=== PATIENT | female | born 1940 | race Caucasian/White ===

== ENCOUNTER 2017-12-07 21:21 | Emergency (ER) | payer MEDICARE, SELFPAY ==
[2017-12-07 21:23] VITALS: BP 145/73; PULSE 79; RESP 18; TEMP 36.7; O2SAT 98; BMI 40.2
[2017-12-07 22:21] LABS: Bedside Glucose 126 mg/dL (70-110)
[2017-12-07 23:05] LABS: Bedside Glucose 102 mg/dL (70-110)
[2017-12-07 23:36] LABS: Bedside Glucose 73 mg/dL (70-110)
--- NOTE | 2017-12-07 23:40 | ED.VISSUMM ---
- ER Visit Summary Date of Service: 12/07/17 Chief Complaint: Medication error History of Present Illness: The patient is a 77 F who had a medication error tonight. She took 27 units of her Humalog instead of her Lantus. This occurred at 2054. Her blood sugar before that was 200. She denies any symptoms at this time. Physical Examination: Vital signs reviewed. HEENT exam unremarkable. Heart is regular rate and rhythm without murmurs. Lungs are clear to auscultation. Abdomen is soft and nontender. Extremities reveal no edema. Skin exam normal. Neurologic exam normal. Test Results: Sugar at 2216 is 126. Blood sugar at 2300 is 102. Blood sugar at 2332 is 76. Patient is currently eating peanut butter and orange juice at this time. The patient's insulin that she took his short acting. Should be getting out of her system fairly quickly. I will monitor her here and then she will be discharged to continue checking her blood sugars at home. She will can continue her regular dosing tomorrow Emergency Department Course and Treatment: [] Treatment Plan: [] Disposition: Discharge Impression: Accidental medication overdose This note was generated with [employer] software. It may contain incorrect words, spelling, and punctuation that were not noted in review of the chart prior to signing ED Disposition - Plan for ED Patient: Chief Complaint: Overdose Referrals: Arsenio Daley MD [Primary Care Provider] -
--- NOTE | 2017-12-07 23:42 | ED.DEP ---
ED Disposition - Plan for ED Patient: Disposition: Home or Assisted Living Chief Complaint: Overdose Instructions: ED Overdose Accidental Referrals: Arsenio Daley MD [Primary Care Provider] -
[2017-12-07 23:51] VITALS: BP 133/55; PULSE 69; RESP 16; O2SAT 96
== END 2017-12-07 23:52 | disposition home or self-care (01) ==
PROVIDERS: Emergency Provider Emergency Medicine; Family Provider Family Medicine; PCP Family Medicine
DX: T38.3X1A Poisoning by insulin and oral hypoglycemic [antidiabetic] drugs, accidental (unintentional), initial encounter (principal); Y92.9 Unspecified place or not applicable; E11.9 Type 2 diabetes mellitus without complications; Z79.4 Long term (current) use of insulin; Z79.84 Long term (current) use of oral hypoglycemic drugs
CPT/HCPCS: 82962; 99282

== ENCOUNTER 2017-12-24 14:27 | Emergency (ER) | payer MEDICARE, SELFPAY ==
[2017-12-24 14:29] VITALS: BP 136/69; PULSE 64; RESP 18; TEMP 36.2; O2SAT 99; BMI 38.9
--- NOTE | 2017-12-24 16:21 | EKG12_ITS ---
Test Reason : ABN LABS Blood Pressure : / mmHG Vent. Rate : 059 BPM Atrial Rate : 059 BPM P-R Int : 150 ms QRS Dur : 090 ms QT Int : 420 ms P-R-T Axes : 024 032 059 degrees QTc Int : 415 ms Sinus bradycardia Low voltage QRS Borderline ECG Confirmed by CHIQUITA KIMBALL, CUBA ([id number]), purchasing expeditor ARLENE JARVIS ([id number]) on 12/26/2017 3:19:09 PM Referred By: GRACY Confirmed By:CUBA PORRAS MD
--- NOTE | 2017-12-24 16:21 | ED.DCSUM_ITS ---
- ER Visit Summary Date of Service: 12/24/17 Chief Complaint: Increased potassium History of Present Illness: The patient is a 77 F with increased potassium per outpatient lab. Patient is essentially asymptomatic. She was seeing the PCP for generalized weakness for a few months. She has no chest pain shortness of breath no nausea vomiting no palpitations or recent syncope. Physical Examination: Not appear in acute distress. Moist mucous membranes, no obvious facial deformity No C-spine tenderness supple neck. Regular rate and rhythm without any obvious murmurs Clear lungs bilaterally speaking in full sentences without any obvious respiratory distress Abdomen soft and nontender no guarding or rebound Moves all extremities without any difficulty or pain. Skin does not show any obvious rashes or lesions, no trauma. Alert oriented ?3 with no gross focal deficit Emergency Department Course and Treatment: Patient's potassium is 5.6. She has slight renal insufficiency. This may be the cause of her potassium I gave her Kayexalate in the emergency department I discussed the patient with Dr. Larkin who is on-call for Dr. Boucher patient will be referred to nephrology and followed up for repeat potassium in a few days. She understands this. Disposition: Discharge stable condition Impression: Acute renal insufficiency Hyperkalemia This note was generated with [employer] dictation software. It may contain incorrect words, spelling, and punctuation that were not noted in review of the chart prior to signing ED Disposition - Plan for ED Patient: Disposition: Home or Assisted Living Chief Complaint: Abn Labs Instructions: ED Potassium Excess Referrals: Arsenio Daley MD [Primary Care Provider] - 2 Days Yareli Ty MD [STAFF PHYSICIAN] - 3-5 Days
[2017-12-24 16:27] VITALS: BP 137/74; PULSE 60; RESP 16; O2SAT 98
[2017-12-24 17:01] LABS: ALB/GLOB Ratio 1.1 RATIO (0.9-2.4); AST(SGOT) 13 U/L (15-37); Alanine Aminotransfer ALT/SGPT 19 U/L (13-56); Albumin, Serum 3.6 g/dL (3.2-5.0); Alkaline Phosphatase 75 U/L (45-117); Anion Gap 6 (5-15); BUN 28 mg/dL (7-18); BUN/Creat Ratio 17.5 RATIO (10-20); Calcium,Total 8.7 mg/dL (8.5-10.1); Chloride 103 mmol/L (98-107); EST Glomerular Filtration Rate 33 mL/min (>60); Est Glom Filt Rate - Afr Amer 40 mL/min (>60); Estimated Creatinine Clearance 23.29 ml/min; Globulin 3.4 g/dL (2.2-4.2); Glucose 123 mg/dL (74-106); Potassium 5.6 mmol/L (3.5-5.1); Sodium Level 135 mmol/L (136-145)
[2017-12-24 19:03] VITALS: BP 149/94; PULSE 74; RESP 16; O2SAT 99
[2017-12-24 19:04] VITALS: BP 149/94; PULSE 57; RESP 16; O2SAT 98
[2017-12-24] MEDS: Sodium Polystyrene Sulfonate 15 GM/60 ML UDC PO (19:08)
== END 2017-12-24 19:10 | disposition home or self-care (01) ==
PROVIDERS: Emergency Provider Emergency Medicine; Family Provider Family Medicine; PCP Family Medicine
DX: N28.9 Disorder of kidney and ureter, unspecified (principal); E87.5 Hyperkalemia; E11.9 Type 2 diabetes mellitus without complications; I10 Essential (primary) hypertension; M79.7 Fibromyalgia; Z79.01 Long term (current) use of anticoagulants; Z79.4 Long term (current) use of insulin; Z79.84 Long term (current) use of oral hypoglycemic drugs; Z79.899 Other long term (current) drug therapy
CPT/HCPCS: 36415; 80053; 93005; 99282; A4216